=== PATIENT | female | born 2000 | race African-American/Black ===

== ENCOUNTER → 2020-04-18 | Outpatient (CLI) | payer MEDICAID ==
[2020-04-18 09:43] VITALS: BP 120/73
--- NOTE | 2020-04-18 09:43 | ER RDC ASSESSMENT REPORT ---
Intake - In the Last 14 days Have you traveled outside [place]?: No Have you been in close contact with someone CONFIRMED: No Worked in Healthcare?: No - Symptoms Subjective Fever([place] feverish): No Chills: No Muscule Aches: No Runny Nose: No Sore Throat: No Cough (New or worsening chronic cough): No Shortness of breath: No Nausea or Vomiting: No Headache: No Abdominal Pain: No Diarrhea(3 or more loose stools in last 24 hours): No - Do you have any of the following Chronic lung disease: Asthma or emphysema or COPD: Yes Cystic Fibrosis: No Diabetes: No High Blood Pressure: No Cardiovascular Disease: No Chronic Kidney Disease: No Chronic Liver Disease: No Chronic blood disorder like Sickle Cell Disease: No Weak immune system due to disease or medication: No Neurologic condition that limits movement: No Developmental delay - Moderate to Severe: No Recent (within past 2 weeks) or current : No Morbid Obesity (>100 pounds over ideal weight): No - Objective Temperature: 98.8 F Pulse Rate: 78 Respiratory Rate: 17 Blood Pressure: 120/73 O2 Sat by Pulse Oximetry: 97 Objective: Given above, testing performed: covid Disposition: Home; Selfcare General - General Stated Complaint: asymptomatic, covid screen Time Seen by Provider: 04/18/20 09:30 Mode of Arrival: Ambulatory Information source: Patient - HPI Notes: Patient presents to clinic for COVID-19 testing prior to entering college [facility]. Patient is asymptomatic. They deny any cough, shortness of breath, fever, chills, muscle aches, rhinorrhea, sore throat, nausea or vomiting, headache, abdominal pain or diarrhea. Patient has no acute medical concerns. - Related Data Allergies/Adverse Reactions: azithromycin [From Zithromax] Allergy (Verified 07/18/10 12:09) cefprozil [From Cefzil] Allergy (Verified 07/18/10 12:09) Past Medical History - General Information source: Patient - Social History Smoking Status: Never Smoker Family History: None - Past Medical History Cardiac Medical History: Reports: None Pulmonary Medical History: Reports: Hx Asthma EENT Medical History: Reports: None Neurological Medical History: Reports: Hx Migraine Endocrine Medical History: Reports: None Renal/ Medical History: Reports: None Malignancy Medical History: Reports: None GI Medical History: Reports: None Musculoskeletal Medical History: Reports None Skin Medical History: Reports None Psychiatric Medical History: Reports: None Traumatic Medical History: Reports: None Infectious Medical History: Reports: None Past Surgical History: Reports: None Physical Exam - General General appearance: Appears well, Alert In distress: None Notes: PHYSICAL EXAMINATION: GENERAL: Well-appearing and in no acute distress. HEAD: Atraumatic, normocephalic. EYES: sclera anicteric, conjunctiva are normal. ENT: nares patent. Moist mucous membranes. NECK: Normal range of motion, supple without lymphadenopathy. LUNGS: No increased work of breathing. Lung sounds CTAB and equal. No wheezes rales or rhonchi. HEART: Regular rate and rhythm without murmurs. ABDOMEN: Soft, nontender, normal bowel sounds, no guarding. EXTREMITIES: Normal range of motion, no pitting edema. No cyanosis. NEUROLOGICAL: A&O x 3. Normal speech. PSYCH: Normal mood, normal affect. SKIN: Warm, Dry, normal turgor, no rashes or lesions noted Patient Education/Counseling Counseling/Education: Patient presents for COVID 19 testing prior to entering college dorm. Patient is asymptomatic at this time. Patient does not have emergency worrying symptoms such as difficulty breathing, shortness of breath, chest pain, pressure, confusion or cyanosis. Patient appears suitable for discharge as vital signs are stable and patient is nontoxic in appearance. Good return precautions have been discussed with patient, patient verbalized understanding and is agreeable with discharge plan of care at this time. Guidance for worsening S/SX: As a person under investigation for Covid 19, the [place] department of Health and Human Services, division of public health advises you to adhere to the following guidance until your test results are reported to you. If your test result is positive, you will receive additional information from your provider and your local health department at that time. Remain at home until you are cleared by the health provider or public health authorities. Keep a log of visitors to your home, notify any visitors to your home of your isolation status. If you plan to move to a new address or leave the county, notify the local health department in your County. Call your doctor or seek care if you have an urgent medical need. Before seeking medical care, call ahead to get instructions from the provider before arriving at the medical office clinic or hospital. Notify them that you are being tested for the virus that causes Covid 19 so that arrangements can be made, as necessary, to prevent transmission to others in the healthcare setting. Next, notify the local health department in your county. If a medical emergency arises and you need to call 911, inform the first responders that you are being tested for the virus that causes Covid 19. Next, notify the local health department in your county. RDC Discharge - Discharge Clinical Impression: Encounter for screening laboratory testing for COVID-19 virus in asymptomatic patient Condition: Good Disposition: Home; Selfcare
--- OUTSIDE RECORDS SUMMARY | 2020-04-18 14:28 | XMS REPORT ---
:2000 [facility] [address] [place] [address] Care Team Providers Name Role Phone Leonel PALOMO Attending Clinician [phone] Anthony GARRISON Attending Clinician [phone] RADHA GARRISON Attending Clinician [phone] Eda Rivers Attending Clinician [phone] Vianca ARCHULETA Attending Clinician [phone] Maxi FERNANDEZFACIAL OPERATOR Attending Clinician [phone] Vijay GARRISON Attending Clinician [phone] Deepika ARCHULETA Attending Clinician [phone] Allergies, Adverse Reactions, Alerts Allergy Allergy Status Severity Reaction(s) Onset Inactive Treating C omments Name Type Date Date Clinician CEFZIL; CEFZIL; Active 2015-01 CAUSE CAUSE -09 SWELLING SWELLING 00:00:0 0 ZITHROMAX; ZITHROMAX; Active 2015-01 CAUSE CAUSE -09 SWELLING SWELLING 00:00:0 0 Symptoms: Symptoms: Active Rash 2015-01 Rash Rash -09 00:00:0 0 Medications Ordered Filled Start Stop Current Ordering Indication Dosage Frequency Signature Comments Components Medication Medication Date Date Medication? Clinician (SIG) Name Name BREEZY (28) 2019-03- Yes 1tab QD BREEZY (28) 3-0.02 mg 09-22 3-0.02 mg tablet 00:00: 00:00 tablet 00 :00 amitriptyli 2019-03- Yes 3tab amitriptyl ne 10 mg -24 06- ine 10 mg tablet 00:00: 00:00 tablet 00 :00 Zyrtec 10 2019-03 Yes Zyrtec 10 mg tablet 0-19 mg tablet 00:00: 00 amitriptyli 2019-03- No 1tab amitriptyl ne 10 mg 0-19 04-17 ine 10 mg tablet 00:00: 00:00 tablet 00 :00 BREEZY (28) 2019-03- No 1tab QD BREEZY (28) 3-0.02 mg 019 04-14 3-0.02 mg tablet 00:00: 00:00 tablet 00 :00 amitriptyli 2018-03 Yes 3tab amitriptyl ne 10 mg 0- ine 10 mg tablet 00:00: tablet 00 Flonase 2014-03- Flonase Allergy 04-06 Allergy Relief 50 00:00: 00:00 Relief 50 mcg/actuati 00 :00 mcg/actuat on ion spray,suspe spray,susp nsion ension Qvar 80 2014-03- No Qvar 80 mcg/actuati 04-06 mcg/actuat on aerosol 00:00: 00:00 ion 00 :00 aerosol albuterol 2014-03- albuterol sulfate 90 04-06 sulfate 90 mcg/actuati 00:00: 00:00 mcg/actuat on HFA 00 :00 ion HFA aerosol aerosol inhaler inhaler Maxalt 10 2014-03- Maxalt 10 mg tablet 04-06 1117 mg tablet 00:00: 00:00 00 :00 Problems Condition Condition Condition Status Onset Resolution Last Treatin g Comments Name Details Category Date Date Treatment Clinician Date 10/12/[address] Rodriguez 10-12 referral 00:00: 00 10/12/[address] Rodriguez 10-12 referral 00:00: 00 10/12/[address] Rodriguez 7 referral 00:00: 00 Not on Not on [id number] file file ASTHMA ASTHMA Problem Active Migraine Migraine Problem Active Procedures This patient has no known procedures. Results Test Description Test Time Test Comments Text Results Atomic Results Result Comments BLOOD COUNT; HEMOGLOBIN 2018-06-06 00:00:00 Test Item Value Reference Range Comments HGB/HCT-HEMOGRM (test code = HGB/HCT-HEMOGRM) 11.2 SCREENING, VISUAL ACUITY, QUANTITATIVE, [id number] 00:00:00 Test Item Value Reference Range Comments VISION SCREEN (test code = VISION SCREEN) Negative OS (test code = OS) 20/20 0.00-0.00 OD (test code = OD) 20/20 0.00-0.00 OU (test code = OU) 20/20 0.00-0.00 LIPID [id number] 00:00:00 Test Item Value Reference Range Comments LIPID (test code = LIPID) NEGATIVE 0.00-0.00 TC (test code = TC) 150 0.00-0.00 HDL (test code = HDL) 47 0.00-0.00 TRG (test code = TRG) 80 0.00-0.00 LDL (test code = LDL) 87 0.00-0.00 NON-HDL (test code = NON-HDL) 103 0.00-0.00 LDL/HDL (test code = LDL/HDL) 1.9 0.00-0.00 SCREENING TEST, PURE TONE, AIR [id number] 00:00:00 Test Item Value Reference Range Comments HEARING SCREEN PURE TONE AIR ONLY (test code = Negative HEARING SCREEN PURE TONE AIR ONLY) L @ 500 Hz (test code = L @ 500 Hz) 20 dB 20.00-30.00 L @ 1000 Hz (test code = L @ 1000 Hz) 20 dB 20.00-30.0 0 L @ 2000 Hz (test code = L @ 2000 Hz) 20 dB 20.00-30.0 0 L @ 4000 Hz (test code = L @ 4000 Hz) 20 dB 20.00-30.0 0 R @ 500 Hz (test code = R @ 500 Hz) 20 dB 20.00-30.00 R @ 1000 Hz (test code = R @ 1000 Hz) 20 dB 20.00-30.0 0 R @ 2000 Hz (test code = R @ 2000 Hz) 20 dB 20.00-30.0 0 R @ 4000 Hz (test code = R @ 4000 Hz) 20 dB 20.00-30.0 0 INFECTIOUS AGENT, IMMUNOASSAY, DIRECT OBSERVATION; STREPOCOCCUS GROUP A 2016-07-07 00:00:00 Test Item Value Reference Range Comments STREP ASSAY (test code = STREP ASSAY) NEGATIVE Assessments Condition Name Status Diagnosis Date Treating Clinici an Moderate persistent asthma, Active 2015-02-04 00:00:00 uncomplicated Adult health examination Active 2019-06-09 00:00:00 Well child Active 2019-06-09 00:00:00 Dietary counseling and surveillance Active 2019-06-09 0 0:00:00 Exercise counseling Active 2019-06-09 00:00:00 BMI pediatric, 5th - 85th percentile Active 2019-06-09 00:00:00 for age Adult health examination Active 2018-06-06 00:00:00 Well child Active 2018-06-06 00:00:00 Dietary counseling and surveillance Active 2018-06-06 0 0:00:00 Exercise counseling Active 2018-06-06 00:00:00 Well child Active 2017-06-04 00:00:00 Exercise counseling Active 2017-06-04 00:00:00 Dietary counseling and surveillance Active 2017-06-04 0 0:00:00 Well child Active 2015-09-11 00:00:00 BMI pediatric, 85th - 95th percentile Active 2020-03-26 00:00:00 for age termination clerk (current) use of hormonal Active 2020-03-26 0 0:00:00 contraceptives Covid Screening w/o symptoms or Active 2020-04-03 00:00 :00 exposure Mild intermittent asthma, uncomplicated Active 00:00:00 Migraine, unsp, not intractable, Active 2020-01-12 00:0 0:00 without status migrainosus Irregular menstruation, unspecified Active 2020-01-12 0 0:00:00 ASTHMA Active 2019-07-04 00:00:00 Myalgia, unspecified site Active 2018-10-12 00:00:00 Encounter for immunization Active 2017-09-08 00:00:00 Encounter for immunization Active 2017-08-11 00:00:00 Tuberculosis screening Active 2017-08-11 00:00:00 Tuberculosis screening Active 2016-09-02 00:00:00 Epigastric pain Active 2016-07-27 00:00:00 CHRONIC PHARYNGITIS Active 2016-07-07 00:00:00 Migraine, unsp, not intractable, Active 2016-02-04 00:0 0:00 without status migrainosus Mild persistent asthma, uncomplicated Active 2015-07-30 00:00:00 Acute upper respiratory infection Active 2015-05-30 00: 00:00 Cough Active 2015-05-30 00:00:00 Moderate persistent asthma, Active 2015-05-30 00:00:00 uncomplicated Moderate persistent asthma, Active 2015-04-30 00:00:00 uncomplicated Allergic rhinitis Active 2015-02-04 00:00:00 Allergy to other foods Active 2015-02-04 00:00:00 Encounters Start End Encounter Admission Attending Care Care Encounter ID Date/Time Date/Time Type Type Clinicians Facility Department 2020-04-12 2020-04-12 Outpatient [facility] [id number] 00:00:00 00:00:00 2020-04-03 2020-04-03 OFFICE/OUTP [place], OPA OPA 1252.N onPrev 00:00:00 00:00:00 ATIENT Anya entativeEnco VISIT, EST unter.[id number] 0888-12-29 2020-03-26 OFFICE/OUTP [place], OPA OPA 1252.N onPrev 00:00:00 00:00:00 ATIENT Anya entativeEnco VISIT, EST unter.[id number] 9707-10-16 2020-01-12 OFFICE/OUTP [place], OPA OPA 1252.N onPrev 00:00:00 00:00:00 ATIENT Anya entativeEnco VISIT, EST unter.[id number] 4383-04-07 2019-07-04 OFFICE/OUTP [place], OPA OPA 1252.N onPrev 00:00:00 00:00:00 ATIENT Anya entativeEnco VISIT, EST unter.[id number] 2281-03-13 2019-06-09 ASQ-SE Gale Cruz OPA OPA 1252.Pre vent 00:00:00 00:00:00 ABRAN YANES ativeEncoun t PHQ SCARED er.[id number] [place] 2018-10-12 2018-10-12 OFFICE/OUTP AMA GARCIA OPA OPA 12 52.NonPrev 00:00:00 00:00:00 ATIENT entativeEnco VISIT, EST unter.[id number] 7540-03-11 2018-06-06 ASQ-SE Mike, OPA OPA 1252.Prev ent 00:00:00 00:00:00 ABRAN alvaiveRodou nt PHQ SCARED er.[id number] [place] 2017-09-08 2017-09-08 IMM ADMIN Omkar Coley OPA OPA 1252 .NonPrev 00:00:00 00:00:00 1ST; < entativeEnco 19YRS unter.[id number] W/AMAN Beauchamp 2017-08-11 2017-08-11 IMM ADMIN Omkar Coley OPA OPA 1252 .NonPrev 00:00:00 00:00:00 1ST; < entativeEnco 19YRS unter.[id number] W/AMAN G 2017-06-04 2017-06-04 ASQ-SE Gale Cruz OPA OPA 1252.Pre vent 00:00:00 00:00:00 ABRAN PSC ativeEncoun t PHQ SCARED er.21872 [place] 2016-09-02 2016-09-02 Outpatient OPA OPA 1252.No nPrev 00:00:00 00:00:00 entativeEnco unter.[id number] 7155-05-01 2016-07-27 OFFICE/OUTP [place], OPA OPA 1252.N onPrev 00:00:00 00:00:00 ATIENT [place] entativeEnco VISIT, EST unter.[id number] 0692-04-11 2016-07-07 OFFICE/OUTP Omkar Coley OPA OPA 12 52.NonPrev 00:00:00 00:00:00 ATIENT entativeEnco VISIT, EST unter.[id number] 1255-11-08 2016-02-04 OFFICE/OUTP [place], OPA OPA 1252.N onPrev 00:00:00 00:00:00 ATIENT [place] entativeEnco VISIT, EST unter.[id number] 8014-06-15 2015-09-11 PREV VISIT, [place], [place] OPA OPA 1252.Prevent 00:00:00 00:00:00 EST, Omkar Carrillo ativeEnco unt 12-17 YRS er.[id number] 2015-07-30 2015-07-30 OFFICE/OUTP Karin Linares OPA OPA 1252.NonPrev 00:00:00 00:00:00 ATIENT Omkar Coley co VISIT, EST unter.[id number] 8651-03-03 2015-05-30 OFFICE/OUTP Deepika, OPA OPA 125 2.NonPrev 00:00:00 00:00:00 ATIENT [place] entativeEnco VISIT, EST unter.[id number] 6763-02-02 2015-04-30 [place] OPA OPA 1252.NonPrev 00:00:00 00:00:00 ATIENT Omkar Coley co VISIT, EST unter.[id number] 0397-11-09 2015-02-04 OFFICE/OUTP Omkar Coley OPA OPA 12 52.NonPrev 00:00:00 00:00:00 ATIENT entativeEnco VISIT, [place] moserer.[id number] Family History Family Member Diagnosis Comments Start Date Stop Date Maternal grandparent DIABETES MELLITUS Natural mother Visual impairment Sister Visual impairment Maternal grandmother Visual impairment Immunizations Ordered Immunization Filled Immunization Date Status Commen ts Refusal Reason Name Name MenTahirOMV 2017-09-08 Completed 00:00:00 MenTahir,OMV 2017-08-11 Completed 00:00:00 MCV4O 2017-06-04 Completed 00:00:00 HPV4 2012-09-09 Completed 00:00:00 HPV4 2012-05-10 Completed 00:00:00 HPV4 2012-03-09 Completed 00:00:00 Payers Payer Name Policy Type Policy Number Effective Date Expiration D ate 1252.InsuranceCarr [id number].Insurance.[id number] 2020 00:0 0:00 [id number] Plan of Treatment Planned Activity Planned Date Details Comments Future Scheduled Test [code = ] Future Scheduled Test [code = ] Future Scheduled Test [code = ] Future Scheduled Test [code = ] Future Scheduled Test [code = ] Future Scheduled Test [code = ] Future Scheduled Test [code = ] Future Scheduled Test [code = ] Future Scheduled Test [code = ] Future Scheduled Test [code = ] Social History Smoking Status Start Date Stop Date Never smoker Vital Signs Vital Name Observation Time Observation Value Comments Blood Pressure Diastolic 2020-03-26 00:00:00 72.0 mm[Hg] Blood Pressure Systolic 2020-03-26 00:00:00 108.0 mm[Hg] Pulse Rate 2020-03-26 00:00:00 68.0 /min Temperature 2020-03-26 00:00:00 [id number] [degF] Height 2020-03-26 00:00:00 167.41 cm Weight 2020-03-26 00:00:00 76.43 kg BMI 2020-03-26 00:00:00 27.27 kg/m2 Blood Pressure Diastolic 2020-01-15 00:00:00 80.0 mm[Hg] Blood Pressure Systolic 2020-01-15 00:00:00 110.0 mm[Hg] Pulse Rate 2020-01-15 00:00:00 90.0 /min Temperature 2020-01-15 00:00:00 [id number] [degF] Height 2020-01-15 00:00:00 165.99 cm Weight 2020-01-15 00:00:00 80.467 kg BMI 2020-01-15 00:00:00 29.2 kg/m2 Blood Pressure Diastolic 2019-06-09 00:00:00 68.0 mm[Hg] Blood Pressure Systolic 2019-06-09 00:00:00 104.0 mm[Hg] Pulse Rate 2019-06-09 00:00:00 90.0 /min Height 2019-06-09 00:00:00 165.1 cm Weight 2019-06-09 00:00:00 69.116 kg BMI 2019-06-09 00:00:00 25.36 kg/m2 BMI 2018-10-12 00:00:00 27.04 kg/m2 Blood Pressure Diastolic 2018-10-12 00:00:00 60.0 mm[Hg] Blood Pressure Systolic 2018-10-12 00:00:00 110.0 mm[Hg] Pulse Rate 2018-10-12 00:00:00 64.0 /min Temperature 2018-10-12 00:00:00 98.49293198295778 [degF] Height 2018-10-12 00:00:00 165.99 cm Weight 2018-10-12 00:00:00 74.503 kg Blood Pressure Diastolic 2018-06-06 00:00:00 66.0 mm[Hg] Blood Pressure Systolic 2018-06-06 00:00:00 112.0 mm[Hg] Pulse Rate 2018-06-06 00:00:00 71.0 /min Height 2018-06-06 00:00:00 166.37 cm Weight 2018-06-06 00:00:00 72.632 kg BMI 2018-06-06 00:00:00 26.24 kg/m2 Temperature 2017-09-08 00:00:00 98.9300566601519 [degF] Weight 2017-09-08 00:00:00 75.013 kg Temperature 2017-08-11 00:00:00 99.5 [degF] Height 2017-08-11 00:00:00 165.0 cm Weight 2017-08-11 00:00:00 73.085 kg BMI 2017-08-11 00:00:00 26.84 kg/m2 Blood Pressure Diastolic 2017-06-04 00:00:00 60.0 mm[Hg] Blood Pressure Systolic 2017-06-04 00:00:00 110.0 mm[Hg] Pulse Rate 2017-06-04 00:00:00 78.0 /min Height 2017-06-04 00:00:00 164.0 cm Weight 2017-06-04 00:00:00 70.307 kg BMI 2017-06-04 00:00:00 26.14 kg/m2 Temperature 2016-09-02 00:00:00 98.24122037024743 [degF] Height 2016-09-02 00:00:00 165.1 cm Weight 2016-09-02 00:00:00 76.26 kg BMI 2016-09-02 00:00:00 27.98 kg/m2 Blood Pressure Diastolic 2016-07-27 00:00:00 68.0 mm[Hg] Blood Pressure Systolic 2016-07-27 00:00:00 114.0 mm[Hg] Pulse Rate 2016-07-27 00:00:00 72.0 /min Temperature 2016-07-27 00:00:00 98.64010698768246 [degF] Height 2016-07-27 00:00:00 165.74 cm Weight 2016-07-27 00:00:00 77.791 kg BMI 2016-07-27 00:00:00 28.32 kg/m2 Blood Pressure Diastolic 2016-07-07 00:00:00 72.0 mm[Hg] Blood Pressure Systolic 2016-07-07 00:00:00 112.0 mm[Hg] Temperature 2016-07-07 00:00:00 98.95346664960459 [degF] Height 2016-07-07 00:00:00 165.1 cm Weight 2016-07-07 00:00:00 76.204 kg BMI 2016-07-07 00:00:00 27.96 kg/m2 Blood Pressure Diastolic 2016-02-04 00:00:00 66.0 mm[Hg] Blood Pressure Systolic 2016-02-04 00:00:00 102.0 mm[Hg] Temperature 2016-02-04 00:00:00 97.47672862049968 [degF] Height 2016-02-04 00:00:00 163.2 cm Weight 2016-02-04 00:00:00 78.698 kg BMI 2016-02-04 00:00:00 29.55 kg/m2 Blood Pressure Diastolic 2015-09-11 00:00:00 64.0 mm[Hg] Blood Pressure Systolic 2015-09-11 00:00:00 106.0 mm[Hg] Pulse Rate 2015-09-11 00:00:00 70.0 /min Height 2015-09-11 00:00:00 164.47 cm Weight 2015-09-11 00:00:00 73.709 kg BMI 2015-09-11 00:00:00 27.25 kg/m2 Blood Pressure Diastolic 2015-07-30 00:00:00 64.0 mm[Hg] Blood Pressure Systolic 2015-07-30 00:00:00 96.0 mm[Hg] Pulse Rate 2015-07-30 00:00:00 64.0 /min Temperature 2015-07-30 00:00:00 [id number] [degF] Height 2015-07-30 00:00:00 166.37 cm Weight 2015-07-30 00:00:00 72.575 kg BMI 2015-07-30 00:00:00 26.22 kg/m2 Blood Pressure Diastolic 2015-05-30 00:00:00 68.0 mm[Hg] Blood Pressure Systolic 2015-05-30 00:00:00 100.0 mm[Hg] Height 2015-05-30 00:00:00 165.74 cm Weight 2015-05-30 00:00:00 70.874 kg BMI 2015-05-30 00:00:00 25.8 kg/m2 Blood Pressure Diastolic 2015-04-30 00:00:00 70.0 mm[Hg] Blood Pressure Systolic 2015-04-30 00:00:00 102.0 mm[Hg] Temperature 2015-04-30 00:00:00 99.88683296147214 [degF] Height 2015-04-30 00:00:00 166.0 cm Weight 2015-04-30 00:00:00 69.768 kg BMI 2015-04-30 00:00:00 25.32 kg/m2 Blood Pressure Diastolic 2015-02-04 00:00:00 68.0 mm[Hg] Blood Pressure Systolic 2015-02-04 00:00:00 118.0 mm[Hg] Pulse Rate 2015-02-04 00:00:00 74.0 /min Height 2015-02-04 00:00:00 165.1 cm Weight 2015-02-04 00:00:00 71.951 kg BMI 2015-02-04 00:00:00 26.4 kg/m2
== END ==
LOC: RDC 09:02
PROVIDERS: ATTEND Registered Nurse
DX: Z20.822 Contact with and (suspected) exposure to COVID-19 (principal); J45.909 Unspecified asthma, uncomplicated
CPT/HCPCS: 87635; 99202 ×2; C9803